=== PATIENT | male | born 1945 | race Caucasian/White ===

== ENCOUNTER 2023-07-11 12:04 | Inpatient (IN) | payer MEDICARE, OTHER ==
[~2023-07-11] VITALS: Ht 177.8 cm; Wt 66.4 kg
[2023-07-11 12:27] LABS: BASOPHILS ABSOLUTE AUTO 0.03 K/mm3 (0.00-0.23); BASOPHILS PERCENT AUTO 0 % (0-2); EOSINOPHILS ABSOLUTE AUTO 0.05 K/mm3 (0.00-0.68); EOSINOPHILS PERCENT AUTO 1 % (0-6); Hematocrit 40.4 % (37.0-53.0); Hemoglobin 13.9 g/dL (13.5-17.5); IMMATURE GRAN ABSOLUTE AUTO 0.04 K/mm3 (0.00-0.10); IMMATURE GRAN PERCENT AUTO 1 % (0-1); LYMPHOCYTES PERCENT AUTO 20 % (21-46); MONOCYTES ABSOLUTE AUTO 0.48 K/mm3 (0.16-1.47); MONOCYTES PERCENT AUTO 6 % (4-13); Mean Corpuscular HGB 32.7 pg (26.0-34.0); Mean Corpuscular HGB Conc 34.4 g/dL (31.5-36.5); Mean Corpuscular Volume 95 fL (80-100); Mean Platelet Volume 9.6 fL (9.1-12.4); NEUTROPHILS ABSOLUTE AUTO 6.37 K/mm3 (1.96-9.15); NEUTROPHILS PERCENT AUTO 74 % (41-73); Platelet Count 224 K/mm3 (150-400); RDW Coefficient Variation 12.6 % (11.7-14.2); RDW Standard Deviation 43.5 fL (35.1-46.3); Red Blood Cell Count 4.25 M/mm3 (4.30-5.90); White Blood Cell Count 8.67 K/mm3 (4.00-11.30)
[2023-07-11 12:49] LABS: Albumin, Blood 3.7 g/dL (3.4-5.0); Bilirubin, Total 0.8 mg/dL (0.1-1.0); Bun/Creatinine Ratio 26.6 (12.0-20.0); Calcium, Blood 9.3 mg/dL (8.5-10.1); Creatinine, Blood 0.79 mg/dL (0.60-1.20); Globulin, Blood 3.6 g/dL (2.2-4.0); Potassium, Blood 4.6 mmol/L (3.5-5.5); Total Protein, Blood 7.3 g/dL (6.4-8.2)
[2023-07-11] MEDS ORDERED: [UNRECOGNIZED DRUG - OTHER] PO (12:51)
[2023-07-11 14:04] LABS: International Normalized Ratio 1.19; Prothrombin Time Results 12.4 Sec (9.7-11.5)
[2023-07-11] MEDS ORDERED: Aspir 8181 MG PO (15:09)
[2023-07-11] MEDS ORDERED: ATOR40TA PO (15:09)
[2023-07-11] MEDS ORDERED: DILT180 PO (15:10)
[2023-07-11] MEDS ORDERED: HYDRA25 PO (15:10)
[2023-07-11] MEDS ORDERED: LINZESS145 MCG PO (15:12)
[2023-07-11] MEDS ORDERED: MESA250ER PO (15:13)
[2023-07-11] MEDS ORDERED: NITR.4SL SL (15:13)
[2023-07-11] MEDS ORDERED: POTA10T PO (15:14)
[2023-07-11] MEDS ORDERED: OMEP20ER PO (15:14)
[2023-07-11] MEDS ORDERED: Sanctura20 MG PO (15:15)
[2023-07-11] MEDS ORDERED: SPIR25 PO (15:15)
[2023-07-11 17:22] VITALS: BP 130/79
[2023-07-11 17:27] LABS: Thyroid Stimulating Hormone 1.53 uIU/mL (0.360-4.800)
--- NOTE | 2023-07-11 18:41 | NUR ---
PT ARRIVED TO THE MEDICAL FLOOR FROM THE ER VIA GURNEY. THE PT WAS ABLE TO TRANNSFER FROM THE GURNEY TO THE BED WITH MINIMAL ASSIST. THE PT IS PLEASANT AND COOPERATIVE. PT DENIES ANY PAIN. THE PT IS SLIGHTLY WEAKER ON THE LEFT ARM AND LEG COMPARED TO THE RIGHT SIDE. PT WAS ORIENTED TO THE ROOM LAYOUT AND CALL SYSTEM. CALL LIGHT IN REACH.
[2023-07-11 19:14] VITALS: BP 142/106
[2023-07-12 02:43] VITALS: BP 105/62
--- NOTE | 2023-07-12 05:31 | NUR ---
SHIFT SUMMARY PT A&OX4 AND PLEASANT. SOMEWHAT EMOTIONAL AT START OF SHIFT D/T FRUSTRATION AT HAVING MULTIPLE STROKES. SOME MILD LEFT SIDED DEFECITS NOTED. PT HAS OCCASIONAL TROUBLE FINDING WORDS. DENIED PAIN BUT DID HAVE SOME NAUSEA ONCE. MEDICATED PER EMAR WITH GOOD EFFECT. NO ACUTE EVENTS OVERNIGHT. PT ABLE TO SLEEP ON AND OFF T/O NIGHT. BED ALARM ON. BED IN LOWEST POSITION AND CALL LIGHT IN REACH.
[2023-07-12 06:38] LABS: BASOPHILS ABSOLUTE AUTO 0.06 K/mm3 (0.00-0.23); BASOPHILS PERCENT AUTO 1 % (0-2); EOSINOPHILS ABSOLUTE AUTO 0.32 K/mm3 (0.00-0.68); EOSINOPHILS PERCENT AUTO 4 % (0-6); Hematocrit 38.8 % (37.0-53.0); Hemoglobin 13.6 g/dL (13.5-17.5); IMMATURE GRAN ABSOLUTE AUTO 0.04 K/mm3 (0.00-0.10); IMMATURE GRAN PERCENT AUTO 0 % (0-1); LYMPHOCYTES ABSOLUTE AUTO 1.59 K/mm3 (0.84-5.20); LYMPHOCYTES PERCENT AUTO 18 % (21-46); MONOCYTES ABSOLUTE AUTO 0.67 K/mm3 (0.16-1.47); MONOCYTES PERCENT AUTO 7 % (4-13); Mean Corpuscular HGB 33.1 pg (26.0-34.0); Mean Corpuscular HGB Conc 35.1 g/dL (31.5-36.5); Mean Corpuscular Volume 94 fL (80-100); Mean Platelet Volume 9.7 fL (9.1-12.4); NEUTROPHILS ABSOLUTE AUTO 6.43 K/mm3 (1.96-9.15); NEUTROPHILS PERCENT AUTO 71 % (41-73); Platelet Count 236 K/mm3 (150-400); RDW Coefficient Variation 12.3 % (11.7-14.2); RDW Standard Deviation 42.8 fL (35.1-46.3); Red Blood Cell Count 4.11 M/mm3 (4.30-5.90); White Blood Cell Count 9.11 K/mm3 (4.00-11.30)
[2023-07-12 07:06] LABS: Albumin, Blood 3.4 g/dL (3.4-5.0); Albumin/Globulin Ratio 1.1 (0.8-1.8); Bilirubin, Total 0.8 mg/dL (0.1-1.0); Bun/Creatinine Ratio 27.6 (12.0-20.0); Calcium, Blood 9.4 mg/dL (8.5-10.1); Creatinine, Blood 0.69 mg/dL (0.60-1.20); Potassium, Blood 3.6 mmol/L (3.5-5.5); Total Protein, Blood 6.4 g/dL (6.4-8.2)
[2023-07-12 07:22] VITALS: BP 111/79
--- NOTE | 2023-07-12 09:00 | NUR ---
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
--- NOTE | 2023-07-12 13:18 | NUR ---
pt having some coughing with swallowing, will wait for speech to eval him for lunch, he did ok with applesauce, but coughed with water. call light in reach.
--- NOTE | 2023-07-12 14:42 | NUR ---
Spiritual care visit conducted. Patient is lying in bed nd alert. He immediately tells me about the strokes and TIAs that he has experienced. He then talks about his 22 yr in the [facility] and his deep determination to perservere and gain his speech and strength back. He shares about his spouse and the how stressed she is about him, her alcoholic son and the grief she is working through because of the of her oldest son. Patient explains about his Yazdanism morgan and that he watches Rev. Bhanu Bynum every week. I normalize his experience, reinforce helpful attitudes and practices and provide anxiety containment, therapetic listening and prayer. Patient responded well and showed signs of reduced stress. I will continue to remain available to patient and family.
[2023-07-12 17:49] VITALS: BP 114/81
--- NOTE | 2023-07-12 18:41 | NUR ---
pt had a swallow eval he is on a puree diet now, doing better with that. no acute changes this shift, call light in reach.
[2023-07-13 00:20] VITALS: BP 128/80
[2023-07-13 03:27] VITALS: BP 115/81
--- NOTE | 2023-07-13 05:36 | NUR ---
END OF SHIFT SUMMARY PT SLEPT WELL OVERNIGHT, NO EVENTS TO REPORT. PT PLEASANT AND COOPERATIVE WITH CARE PROVIDED. PT DENIED CHEST PAIN, NO SOB. PT ON RA, VSS. PT ON TELEMETRY SINUS RHYTHM WITH 84 BPM. ASPIRATION PRECAUTIONS IN PLACE, PT ABLE TO TAKE 2100 MEDICATIONS CRUSHED IN APPLESAUCE WITHOUT ANY DIFFICULTIES. EXPRESSIVE APHASIA, PT HAD SOME TROUBLE WITH FINDING THE RIGHT WORDS. PT ABLE TO STAND UP WITH ASSISTANCE FROM 1P WITH FWW, LEFT ARM WEAKNESS. CALL LIGHT WITHIN REACH, WCTM.
[2023-07-13 07:55] VITALS: BP 103/84
[2023-07-13 09:10] LABS: Bun/Creatinine Ratio 19.2 (12.0-20.0); Calcium, Blood 9.3 mg/dL (8.5-10.1); Creatinine, Blood 0.99 mg/dL (0.60-1.20); Magnesium, Blood 1.9 mg/dL (1.6-2.4)
--- NOTE | 2023-07-13 12:02 | NUR ---
CALL TO DR VELASCO THIS AM DUE TO PATIENT WITH INCREASED LEFT SIDE WEAKNESS SLOUCHING ON COMMODE AND DROOLING, ALSO CALL FROM TELEMETRY SINUS TACH 170S WHILE ON COMMODE, N/V DIAPHORETIC. DR ORDERED METOPROLOL IV, HOWEVER ONCE PATIENT BACK TO BED HEART RATE DECREASED TO 100, WAS IN AFIB FOR SHORT TIME. DR CANCELLED METOPROLOL AND ORDERED TO GIVE MORNING MEDS INCLUDING HEART MEDS AT THAT TIME. MEDS GIVEN PER EMAR.
--- NOTE | 2023-07-13 12:05 | NUR ---
CALL TO [facility] FOR MODEL # OF STENTS AND LOOP RECORDER, SPOKE WITH JD IN MEDICAL RECORDS, , SHE WILL CALL BACK WITH INFORMATION.
[2023-07-13 16:27] VITALS: BP 126/86
--- NOTE | 2023-07-13 17:48 | NUR ---
SHIFT SUMMARY PATIENT WITH NO FURTHER ACUTE EVENTS SINCE SHIFT CHANGE EVENT PREVIOUSLY CHARTED ON. MESALAMINE MEDICATION CANNOT BE CRUSHED AND WAS HELD THIS AM, DR VELASCO NOTIFIED AND ORDERS TO HOLD FOR NOW THE MESALAMINE. PATIENT CONTINUES WITH LEFT SIDE DEFICITS AND SOFT SPOKEN, SLOW TO FIND WORDS. BED IN LOW POSITION WITH ALARM ON. CALL LIGHT IN REACH. HOURLY ROUNDING ON PATIENT TO ASSESS NEEDS HE DOES NOT USE HIS CALL LIGHT.
[2023-07-13 19:34] VITALS: BP 103/74
--- NOTE | 2023-07-14 01:47 | NUR ---
SHIFT JUAN JOSE, PT RESTING IN BED, PT HAD FAMILY HERE EARLYER TO VISIT. PT HAS WEAKNESS TO LEFT ARM, PT NOT ABLE TO GRASP OR DO PUSH PULLS . PT CAN DELIA LIFT ARM VERY SLIGHTLY. PT CAN LIFT LEFT LEG A LITTLE AND SO SOME PUSH PULL WITH FEET. PT ALERT AND ABLE TO TALK PT HAS SOME HESITATION WHEN ANSWERING QUESTIONS. PT HAS TWITHCHING TO LEFT EYE. PT RESTING IN BED. RESPERATIONS WVEN AND UNLABORED. CALL LIGHT IN REACH.
[2023-07-14 05:05] VITALS: BP 120/93
[2023-07-14 05:45] LABS: BASOPHILS ABSOLUTE AUTO 0.04 K/mm3 (0.00-0.23); BASOPHILS PERCENT AUTO 0 % (0-2); EOSINOPHILS ABSOLUTE AUTO 0.15 K/mm3 (0.00-0.68); EOSINOPHILS PERCENT AUTO 2 % (0-6); Hematocrit 42.1 % (37.0-53.0); Hemoglobin 14.5 g/dL (13.5-17.5); IMMATURE GRAN ABSOLUTE AUTO 0.04 K/mm3 (0.00-0.10); IMMATURE GRAN PERCENT AUTO 0 % (0-1); LYMPHOCYTES ABSOLUTE AUTO 1.83 K/mm3 (0.84-5.20); LYMPHOCYTES PERCENT AUTO 18 % (21-46); MONOCYTES ABSOLUTE AUTO 0.83 K/mm3 (0.16-1.47); MONOCYTES PERCENT AUTO 8 % (4-13); Mean Corpuscular HGB 32.7 pg (26.0-34.0); Mean Corpuscular HGB Conc 34.4 g/dL (31.5-36.5); Mean Corpuscular Volume 95 fL (80-100); Mean Platelet Volume 9.8 fL (9.1-12.4); NEUTROPHILS ABSOLUTE AUTO 7.25 K/mm3 (1.96-9.15); NEUTROPHILS PERCENT AUTO 72 % (41-73); Platelet Count 248 K/mm3 (150-400); RDW Coefficient Variation 12.5 % (11.7-14.2); RDW Standard Deviation 43.7 fL (35.1-46.3); Red Blood Cell Count 4.43 M/mm3 (4.30-5.90); White Blood Cell Count 10.14 K/mm3 (4.00-11.30)
[2023-07-14 06:29] LABS: Bun/Creatinine Ratio 24.3 (12.0-20.0); Calcium, Blood 9.6 mg/dL (8.5-10.1); Creatinine, Blood 1.03 mg/dL (0.60-1.20); Potassium, Blood 3.7 mmol/L (3.5-5.5)
[2023-07-14 07:17] VITALS: BP 138/88
--- NOTE | 2023-07-14 13:07 | NUR ---
Ast to BSC. HR increased to 130s per teletray operator, now in afib. Dr. Kennedy informed. No further orders at this time. informed JAZIEL bed available today.
[2023-07-14 14:13] LABS: SARS-Cov-2 (COVID-19) PCR, MMC NEGATIVE (NEGATIVE)
[2023-07-14] MEDS ORDERED: Acetaminophen325 M1 PO (15:32)
[2023-07-14] MEDS ORDERED: POTA20LUD PO (15:33)
[2023-07-14] MEDS ORDERED: XARELTO20 MG PO (15:33)
--- NOTE | 2023-07-14 15:53 | NUR ---
SHIFT/DISCHARGE SUMMARY Pt remains alert to self and place this shift. Forgetful at times, needing to catch the bus. Reminded pt he was going by stretcher to [facility] this afternoon. Denies pain, VSS. Decreased appetite on liquified diet with thin liquids. Oral care provided. at bedside with updates for discharge @1300. Transferred via EMS stretcher. Report called to Esther at [facility].
== END 2023-07-14 15:21 | DRG 65 ==
LOC: EDBD 12:04 → ER 12:04 → MEDS 12:05
PROVIDERS: Emergency Medicine; ADMIT Internal Medicine
DX: I63.9 Cerebral infarction, unspecified (principal); G81.94 Hemiplegia, unspecified affecting left nondominant side; Z66 Do not resuscitate; R13.10 Dysphagia, unspecified; R47.1 Dysarthria and anarthria; I48.91 Unspecified atrial fibrillation; I10 Essential (primary) hypertension; E78.5 Hyperlipidemia, unspecified; N40.0 Benign prostatic hyperplasia without lower urinary tract symptoms; K21.9 Gastro-esophageal reflux disease without esophagitis; I49.5 Sick sinus syndrome; Z79.01 Long term (current) use of anticoagulants
CPT/HCPCS: 36415; 70450; 70496; 70498; 80048; 80053; 82947; 83036; 83735; 84443; 85025; 85610; 85730; 92526; 92610; 93005; 93010; 93306; 94760; 96374; 97110; 97112; 97162; 97166; 99285-25; A9270; G0378; J2405; Q9967; U0002

== ENCOUNTER 2024-07-17 17:03 | Inpatient (IN) | payer MEDICARE, OTHER ==
[~2024-07-17] VITALS: Ht 180.3 cm; Wt 66.8 kg
[~2024-07-17 17:03] MED LIST: ATOR40TA PO; Acetaminophen325 M1 PO; Aspir 8181 MG PO; B-1100 M1 PO; CIPR500 PO; DABI150C PO; DILTIAZEM 24HR360 M2 PO; EXELON1 EA10 TOP; GLYCERIN L5.4 GM/5.1 PR; HYDCHL25 PO; HYDRA25 PO; IMODIUM A-D2 M1 PO; LACT10SY PO; LINZESS145 MCG PO; MESALAMINE PO; METR500 PO; MIRALAX17 GM PO; NITR.4SL SL; OMEP20ER PO; ONDA4 PO; ORTIKOS9 M1 PO; POTA10T PO; POTA20LUD PO; POTCHL20ER PO; SENNA LAXATIVE8.6 MG PO; SERT50 PO; SERTRALINE PO; SPIR25 PO; Sanctura20 MG PO; VISBIOME 112.51 EACH PO; XARELTO20 MG PO; [UNRECOGNIZED DRUG - OTHER] PO
[2024-07-17] MEDS ORDERED: NS 1,000 ML IV SCH (17:35)
[2024-07-17] MEDS ORDERED: Acetaminophen 500 MG Tab PO ONE (17:35)
[2024-07-17 18:01] LABS: BASOPHILS ABSOLUTE AUTO 0.07 K/mm3 (0.00-0.23); BASOPHILS PERCENT AUTO 0 % (0-2); EOSINOPHILS ABSOLUTE AUTO 0.04 K/mm3 (0.00-0.68); EOSINOPHILS PERCENT AUTO 0 % (0-6); Hematocrit 35.2 % (37.0-53.0); Hemoglobin 11.4 g/dL (13.5-17.5); IMMATURE GRAN ABSOLUTE AUTO 0.39 K/mm3 (0.00-0.10); IMMATURE GRAN PERCENT AUTO 2 % (0-1); LYMPHOCYTES ABSOLUTE AUTO 0.19 K/mm3 (0.84-5.20); LYMPHOCYTES PERCENT AUTO 1 % (21-46); MONOCYTES ABSOLUTE AUTO 0.46 K/mm3 (0.16-1.47); MONOCYTES PERCENT AUTO 2 % (4-13); Mean Corpuscular HGB 29.1 pg (26.0-34.0); Mean Corpuscular HGB Conc 32.4 g/dL (31.5-36.5); Mean Corpuscular Volume 90 fL (80-100); Mean Platelet Volume 10.2 fL (9.1-12.4); NEUTROPHILS ABSOLUTE AUTO 19.15 K/mm3 (1.96-9.15); NEUTROPHILS PERCENT AUTO 94 % (41-73); Platelet Count 190 K/mm3 (150-400); RDW Coefficient Variation 17.2 % (11.7-14.2); RDW Standard Deviation 56.8 fL (35.1-46.3); Red Blood Cell Count 3.92 M/mm3 (4.30-5.90)
[2024-07-17 18:37] LABS: Influenza A, PCR NEGATIVE (NEGATIVE); Influenza B, PCR NEGATIVE (NEGATIVE); Resp Syncytial Virus, PCR NEGATIVE (NEGATIVE); SARS-Cov-2 (COVID-19) PCR, MMC NEGATIVE (NEGATIVE)
[2024-07-17 19:05] LABS: Source, Urine Clean Catch
[2024-07-17 19:09] LABS: Appearance, Urine Cloudy (Clear); Bilirubin, Urine Neg (Neg); Blood, Urine 5+ (Neg); Color, Urine Amber (P-Yellow); Glucose Qualitative, Urine Neg (Neg); Ketones, Urine 1+ (Neg); Leukocyte Esterase, Urine 3+ (Neg); Nitrite, Urine Neg (Neg); Protein, Urine 3+ (Neg); Specific Gravity, Urine 1.005 (1.003-1.022); Urobilinogen, Urine 1+ (Normal)
[2024-07-17 19:17] LABS: Bacteria Many /hpf; Red Blood Cells, Urine TNTC /hpf (0-2); Squamous Epithelial Cells Not Seen /hpf (Few); White Blood Cells, Urine TNTC /hpf (0-5)
[2024-07-17] MEDS ORDERED: CefTRIAXone Sodium 1,000 MG in NS 100 ML IV ONE ×2 (19:20→21:15)
[2024-07-17 19:25] LABS: Magnesium, Blood 1.9 mg/dL (1.6-2.4)
[2024-07-17 19:36] LABS: Albumin, Blood 2.1 g/dL (3.4-5.0); Albumin/Globulin Ratio 0.4 (0.8-1.8); Bilirubin, Total 0.8 mg/dL (0.1-1.0); Bun/Creatinine Ratio 23.5 (12.0-20.0); Calcium, Blood 9.3 mg/dL (8.5-10.1); Globulin, Blood 4.8 g/dL (2.2-4.0); Phosphorus, Blood 2.3 mg/dL (2.5-4.9); Total Protein, Blood 6.9 g/dL (6.4-8.2)
[2024-07-17] MEDS ORDERED: CefTRIAXone 1000 MG Vial ONE (20:12)
[2024-07-17] MEDS ORDERED: Ondansetron HCl 2 MG / ML 2ML Vial IV PRN (21:05)
[2024-07-17] MEDS ORDERED: Metoprolol Tartrate 1 MG/ML 5 ML VIAL IV PRN (21:05)
[2024-07-17] MEDS ORDERED: Lactated Ringer's 1,000 ML IV SCH (21:05)
[2024-07-17 21:37] LABS: Bicarbonate Venous 21.2 mmol/L (24.0-30.0); pH Blood Venous 7.47 (7.34-7.37)
[2024-07-17] MEDS ORDERED: NS 1,000 ML IV ONE (22:00)
[2024-07-18] VITALS (67 sets, daily range): BP systolic 72–204; BP diastolic 49–130
[2024-07-18] MEDS ORDERED: Lactated Ringer's 1,000 ML IV ONE (00:07)
[2024-07-18] MEDS ORDERED: Apixaban 5 MG Tab PO SCH (04:33)
[2024-07-18 04:44] LABS: Hemoglobin 9.1 g/dL (13.5-17.5); Mean Corpuscular HGB Conc 32.5 g/dL (31.5-36.5); Mean Corpuscular Volume 89 fL (80-100); Mean Platelet Volume 10.3 fL (9.1-12.4); Platelet Count 117 K/mm3 (150-400); RDW Coefficient Variation 17.5 % (11.7-14.2); Red Blood Cell Count 3.14 M/mm3 (4.30-5.90); White Blood Cell Count 22.01 K/mm3 (4.00-11.30)
[2024-07-18 04:59] LABS: International Normalized Ratio 1.46; Prothrombin Time Results 15.2 Sec (9.7-11.5)
[2024-07-18] MEDS ORDERED: Lactated Ringer's 500 ML IV SCH (05:00)
[2024-07-18] MEDS ORDERED: Lactated Ringer's 500 ML IV ONE (05:05)
[2024-07-18 05:07] LABS: Albumin, Blood 1.6 g/dL (3.4-5.0); Albumin/Globulin Ratio 0.5 (0.8-1.8); Bilirubin, Total 0.7 mg/dL (0.1-1.0); Bun/Creatinine Ratio 19.3 (12.0-20.0); Calcium, Blood 8.4 mg/dL (8.5-10.1); Creatinine, Blood 2.43 mg/dL (0.60-1.20); Globulin, Blood 3.5 g/dL (2.2-4.0); Magnesium, Blood 1.7 mg/dL (1.6-2.4); Potassium, Blood 3.3 mmol/L (3.5-5.5); Total Protein, Blood 5.1 g/dL (6.4-8.2)
[2024-07-18 05:18] LABS: BAND PERCENT MAN 9 % (0-8); BASOPHILS PERCENT MAN 0 % (0-2); EOSINOPHILS PERCENT MAN 0 % (0-6); LYMPHOCYTES ABSOLUTE MAN 0.22 K/mm3 (0.84-5.20); LYMPHOCYTES PERCENT MAN 1 % (21-46); METAMYELOCYTE ABSOLUTE MAN 0.22 K/mm3 (0.00-0.00); METAMYELOCYTE PERCENT MAN 1 % (0-0); MONOCYTES ABSOLUTE MAN 0.22 K/mm3 (0.16-1.47); MONOCYTES PERCENT MAN 1 % (4-13); MYELOCYTE ABSOLUTE MAN 0.22 K/mm3 (0.00-0.00); MYELOCYTE PERCENT MAN 1 % (0-0); NEUTROPHILS ABSOLUTE MAN 21.12 K/mm3 (1.96-9.15); SEG NEUTROPHILS PERCENT MAN 87 % (41-73); TOTAL CELLS COUNTED 100
[2024-07-18] MEDS ORDERED: Potassium Chloride 40 MEQ IV SCH (05:25)
[2024-07-18] MEDS ORDERED: D5W-1/2NS 1,000 ML IV SCH (05:30)
[2024-07-18] MEDS ORDERED: Pantoprazole Sodium 40 MG Injection IV SCH (06:00)
--- NOTE | 2024-07-18 06:04 | NUR ---
TRANSFER NOTE/PATIENT UPDATE PT TRANSFERRED TO PCU 1 AT 0355. PT ALERT AND NONVERBAL. PT NOT FOLLOWING DIRECTIONS. PURPOSEFUL MOVEMENT NOTED IN LEFT ARM. OTHERWISE NO OTHER MOVEMENT NOTED IN EXTREMETIES. PERRLA. SPONTANEOUS EYE MOVEMENT, TRACKING THIS RN. PT UNABLE TO FOLLOW DIRECTIONS FOR PO INTAKE. PT WITH SBP 70'S AT TIME OF TRANSFER WITH AFIB IN THE 130-140'S. MD HANKINS WITH ORDERS TO DC LOPRESSOR PUSH AND START AMIODARONE GTT AND GIVE 500ML BOLUS OF LR. BOLUS GIVEN WITH NOTED IMPROVMENT OF HR, WHICH DECREASED TO 110-120; SBP CONTINUED TO BE 70'S, WITH MAP 59-62. NOTIFIED OF CHANGE AND VERBALIZED TO HOLD STARTING AMIODARONE FOR NOW ANGIVE ANOTHER 500MLS BOLUS OF LR. GIVEN PER EMAR. AT TIME OF INFUSING BOLUS MORNING LAB RESULTS CAME BACK SHOWING A NA VALUE OF 152 AND K+ OF 3.3. CALL PLACED TO MD HANKINS REGARDING ELECTROLYTES. ORDER FOR D5 1/2 NS AND 40MEQ OF KCL. 2ND BOLUS COMPLETED WITH SLIGHT BP IMPROVEMENT WITH SBP 80'S AND MAP OF 65. HR INCREASED BACK TO 140-150'S. CALL PLACED TO PATIENT'S PHYLLIS TO DISCUSS PATIENT'S CHANGES IN VITALS, HOWEVER, DID NOT ANSWER SO MESSAGE WAS LEFT. CALL PLACED TO MD HANKINS REGARDING CURRENT VITALS AND BEING UNABLE TO REACH . MD HANKINS WITH ORDERS FOR PATIENT TO BE TRANSFERRED TO ICU AT THIS TIME. PT TRANSFERRED TO ICU 3. BEDSIDE SHIFT REPORT GIVEN IN ICU. PT WITH DNR WRISTBAND ON LEFT WRIST AT TIME OF TRANSFER.
[2024-07-18] MEDS ORDERED: Potassium Chloride 40 MEQ in NS 250 ML IV ONE (06:15)
--- NOTE | 2024-07-18 06:16 | NUR ---
SHIFT SUMMARY: PT ARRIVED APPROXIMATELY 0550 FROM PCU. RECEIVED REPORT FROM RN. PT IS NONVERBAL WITH PARKINSON'S, DEMENTIA AND HX OF CVA. PATIENT IS TRACKING MOVEMENT BUT NOT EXHIBITING PURPOSEFUL MOVEMENT OR FOLLOWING COMMANDS. SINUS TACH ON MONITOR. MAP 60-65. LUNGS CLEAR. SKIN IS DRY, WOUND ON COCCYX NOTED, MEPILEX IN PLACE AND PHOTO IN CHART. 1 [address]G PERIPHERAL IV IN PLACE, STARTED INFUSING FLUIDS.
[2024-07-18] MEDS ORDERED: NS 250 ML IV PRN (06:25)
--- NOTE | 2024-07-18 06:38 | NUR ---
WOUND DR HANKINS NOTIFIED REGARDING COCCYX WOUND AND TX.
[2024-07-18] MEDS ORDERED: Diltiazem HCl 180 MG Cap.CD PO SCH (09:00)
[2024-07-18] MEDS ORDERED: Atorvastatin 40 MG Tab PO SCH (09:00)
[2024-07-18] MEDS ORDERED: Sertraline HCl 50 MG Tab PO SCH (09:00)
[2024-07-18] MEDS ORDERED: RIVASTIGMINE 4.6 MG/24 HR TOP SCH (09:00)
[2024-07-18] MEDS ORDERED: CefTRIAXone Sodium 2,000 MG in NS 100 ML IV SCH (09:00)
[2024-07-18] MEDS ORDERED: AMAN100 PO (10:43)
[2024-07-18] MEDS ORDERED: Hair, Skin & N1 EACH PO (10:46)
[2024-07-18 15:52] LABS: Albumin, Blood 1.6 g/dL (3.4-5.0); Anion Gap 15 mmol/L (3-11); Blood Urea Nitrogen 48 mg/dL (8-24); Bun/Creatinine Ratio 21.6 (12.0-20.0); CO2, Blood 14 mmol/L (21-32); Calcium, Blood 7.9 mg/dL (8.5-10.1); Chloride, Blood 122 mmol/L (98-108); Creatinine, Blood 2.22 mg/dL (0.60-1.20); Glomerular Filtration Rate 29 (60-); Glucose, Blood 257 mg/dL (70-99); Sodium, Blood 146 mmol/L (136-145)
[2024-07-18] MEDS ORDERED: NS 1,000 ML IV SCH (16:00)
[2024-07-18] MEDS ORDERED: Albumin (Human) 25gm/100ml 100 ML IV SCH (16:05)
[2024-07-18] MEDS ORDERED: Dose Adjust by Pharmacy XX STA (17:12)
[2024-07-18] MEDS ORDERED: Heparin Sodium,Porcine/0.5 NS 500 ML IV SCH (17:15)
[2024-07-18] MEDS ORDERED: Heparin Sodium 5000 Units/ML 1ML MDV IV ONE (17:15)
--- NOTE | 2024-07-18 18:59 | NUR ---
SUMMARY PT REMAINS MOSTLY NON VERBAL, HE SAID "YEAH" AND "OW" ONE TIME OTHERWISE NO OTHER WORDS. WITHDRAWLS FROM NOXIOUS STIMULUS TO EXTREMITIES BUT DOES NOT FOLLOW COMMANDS JUST STARES BLANKLY. CLAMPS MOUTH CLOSED FOR ORAL CARE, APPLIED MOISTURIZER TO LIPS. PT VOIDED 2X TODAY, UNMEASURED VOIDS. BLADDER SCAN THIS EVENING SHOWED 136ML. TRYING TO AVOID INVASIVE PROCEDURES SUCH SOLOMON CATH DUE TO PT'S POLST THAT IS ON THE CHART. PHYLLIS UPDATED TODAY AND IS OK WITH THE INTERVENTIONS THUS FAR. PT TAKEN TO CT SCAN FOR HEAD CT. PT HAS BEEN NON VERBAL JUST IN THE LAST FEW WEEKS AFTER GETTING COVID PER THE . PT CONVERTED TO NS THIS AM SHORTLY AFTER STARTING AMIODORONE GTT. DR. RAMOS D/C'D GTT THIS EVENING. ON LOW DOSE PERIPHERAL LEVOPHED. ALBUMIN STARTED.
[2024-07-18] MEDS ORDERED: HydrALAZINE HCl 20 MG / ML 1ML Vial IV ONE (21:25)
[2024-07-18] MEDS ORDERED: FentaNYL Citrate 50 MCG/ML 2 ML Injection IV ONE (22:30)
[2024-07-18] MEDS ORDERED: Dextrose 50% 50 ML Vial IV ONE (23:50)
[2024-07-19] VITALS (55 sets, daily range): BP systolic 103–185; BP diastolic 64–134
[2024-07-19] MEDS ORDERED: D5W-1/2NS 1,000 ML IV ONE (00:30)
--- NOTE | 2024-07-19 00:57 | NUR ---
THIS RN ASSUMED CARE OF PT AT 1900. PT IS NON-VERBAL AT BASELINE, PT IS RESPONDING TO PAINFUL STIMULI. PT SOUNDS CLEAR/DIMINISHED, ON 2L NC SATTING >95%, NO OBJECTIVE S/S OF SHORTNESS OF BREATH. HEART RATE WAS IN LOW 100s, BLOOD PRESSURE STABLE 120/80s, LEVO WAS TITRATED OFF. PT WAS NOT PUTTING OUT URINE, DR. SCHRADER SAID TO PUT IN A SOLOMON CATHETER. NO OTHER INTERVENTIONS AT THIS TIME. PLAN OF CARE CONTINUED.
--- NOTE | 2024-07-19 01:03 | NUR ---
PT HEART RATE STARTED TO INCREASE TO 120-130s, BLOOD PRESSURE HYPERTENSIVE AT 180/100s, DR. HANKINS WAS NOTIFIED TO COME SEE PT BEDSIDE. PROVIDER AT BEDSIDE ORDERED 12.5MCG OF FENT. EKG WAS DONE PT IN A-FIB RVR AND PROVIDER ORDERED 150MG BOLUS OF AMIO. PT ALSO NOTED TO HAVE A BLOOD SUGAR OF 36, PROVIDER NOTIFIED AND ORDERED AMP OF D50, AND TO START D5 1/2NS AT 100ML/HR X1 BAG. NO OTHER INTERVENTIONS AT THIS TIME. PLAN OF CARE CONTINUED.
[2024-07-19] MEDS ORDERED: Dose Adjust by Pharmacy XX STA (01:38)
[2024-07-19 03:45] LABS: Hematocrit 25.8 % (37.0-53.0); Hemoglobin 8.4 g/dL (13.5-17.5); Mean Corpuscular HGB 28.6 pg (26.0-34.0); Mean Corpuscular HGB Conc 32.6 g/dL (31.5-36.5); Mean Corpuscular Volume 88 fL (80-100); Mean Platelet Volume 10.7 fL (9.1-12.4); NRBC ABSOLUTE 0.02 K/mm3 (0.00-0.02); NRBC Auto 0.1 /100 WBC (0.0-0.2); Platelet Count 96 K/mm3 (150-400); RDW Coefficient Variation 17.9 % (11.7-14.2); RDW Standard Deviation 56.9 fL (35.1-46.3); Red Blood Cell Count 2.94 M/mm3 (4.30-5.90); White Blood Cell Count 32.85 K/mm3 (4.00-11.30)
[2024-07-19 04:14] LABS: Anion Gap 16 mmol/L (3-11); Blood Urea Nitrogen 49 mg/dL (8-24); Bun/Creatinine Ratio 23.8 (12.0-20.0); CO2, Blood 13 mmol/L (21-32); Calcium, Blood 8.1 mg/dL (8.5-10.1); Chloride, Blood 123 mmol/L (98-108); Creatinine, Blood 2.06 mg/dL (0.60-1.20); Glomerular Filtration Rate 32 (60-); Glucose, Blood 97 mg/dL (70-99); Phosphorus, Blood 1.8 mg/dL (2.5-4.9); Potassium, Blood 3.8 mmol/L (3.5-5.5); Sodium, Blood 148 mmol/L (136-145)
[2024-07-19 04:15] LABS: BAND PERCENT MAN 4 % (0-8); BASOPHILS PERCENT MAN 0 % (0-2); EOSINOPHILS PERCENT MAN 0 % (0-6); LYMPHOCYTES ABSOLUTE MAN 0.98 K/mm3 (0.84-5.20); LYMPHOCYTES PERCENT MAN 3 % (21-46); MONOCYTES PERCENT MAN 0 % (4-13); NEUTROPHILS ABSOLUTE MAN 31.86 K/mm3 (1.96-9.15); SEG NEUTROPHILS PERCENT MAN 93 % (41-73); TOTAL CELLS COUNTED 100
--- NOTE | 2024-07-19 05:57 | NUR ---
PT SUMMARY PT IS LAYING IN BED PEACEFULLY. PT BLOOD SUGAR HAS COME UP TO 112, STILL ON THE D5 1/2NS AT 100ML/HR. PT WBC WENT UP TO 32.85, NOTIFIED, PROVIDER SAID TO WAIT FOR BLOOD CULTURE RESULTS TO COME BACK. PT STILL IN AND OUT OF A-FIB RATE CONTROLLED, BLOOD PRESSURE STABLE AT 128/80. NO OTHER ACUTE EVENTS TO REPORT OVERNIGHT. PLAN OF CARE CONTINUED.
[2024-07-19] MEDS ORDERED: Potassium Phosphate Dibasic 30 MM in Dextrose 5% 500 ML IV ONE (12:00)
--- NOTE | 2024-07-19 13:11 | NUR ---
BEDSIDE SWALLOW EVAL WITH THIS RN. PT BECAME VERY ANXIOUS WHEN DISCUSSED TRYING TO SWALLOW FOODS. HR,BP, AND RR ALL INCREASED. VISIBLY UPSET. ASKED HIM TO TRY WATER, IN SIPPING THROUGH A STRAW HE WAS COUGHING, WHEN HE OPEN LID TOOK IN WATER HE WAS ABLE TO TOLERATE. VIGOROUS ORAL CARE ILLICITED A LARGE VOLUME OF THICK WHITE/CREAM EXPECTORATE THAT WAS STUCK ON THE ROOF OF HIS MOUTH AND POSTERIOR PHARYNX. HE ALLOWED CONTINUED CLEANING FOR SEVERAL MINUTES AND THEN WAS ABLE TO VOICE A FEW WORDS AND TAKE IN SOME MORE SIPS OF WATER. FEELS PT IS ABLE TO TRANSITION/DOWNGRADE TO LOWER STATUS, JUST CONTINUE WITH TELEMETRY.
[2024-07-19] MEDS ORDERED: Clarify Drug Order XX ONE (17:40)
--- NOTE | 2024-07-19 18:24 | NUR ---
JOSE ANGEL HAS REMAINED OFF THE PRESSORS THROUGHOUT THE SHIFT. HE HAS REMAINED WITH SBP >130 FOR THE MAJORITY OF THE DAY. HE WAS ABLE TO SWALLOW SOME WATER, HAD A LARGE BM, VOIDED PER SOLOMON, HEPARIN GTT DECREASED TO 10U/KG/HR. RIGHT ARM WITH SOME MOVEMENT, CROSSES ANKLES, SAYS A FEW WORDS. SMILES A LOT. LUNGS SOUND CLEAR, ORAL CARE COMPLETED WITH LARGE VOLUME OF MUCOUS PLUGS REMOVED FROM BACK OF THE THROAT. VOICE WAS STRONGER AND LESS COUGHING ONCE REMOVED. VISITED TODAY. NO FURTHER CHANGES. UPDATE TO TODAY.
[2024-07-19] MEDS ORDERED: Metoprolol Tartrate 1 MG/ML 5 ML VIAL IV PRN (18:25)
[2024-07-19] MEDS ORDERED: Diltiazem HCl 180 MG Cap.CD PO SCH (19:00)
[2024-07-19] MEDS ORDERED: Diltiazem HCl 5 MG / ML 5ML Vial IV ONE (19:30)
--- NOTE | 2024-07-19 20:53 | NUR ---
THIS RN ASSUMED CARE OF PT AT 1900. PT IS RESTING IN BED PEACEFULLY. PT DID NOT SPEAK ANY WORDS UPON ASSESSMENT BUT CLINICALLY LOOKS A LOT BETTER. PT HEART RATE IS IN THE 70-80s, BLOOD PRESSURE STABLE AT 138/94, UNABLE TO ASSESS CHEST PAIN DUE TO NON-VERBAL. PT SOUNDS DIMINISHED, ON 2L NC SATTING >95%, NO OBJECTIVE S/S OF SHORTNESS OF BREATHE. PT HAS A CARDIZEM PO AT 1900, PT NOT ABLE TO PASS NURSE SWALLOW STUDY. NOTIFIED, PT IS NOW NPO WITH A PENDING SPEECH EVAL, PO CARDIZEM WAS HELD. NO OTHER INTERVENTIONS AT THIS TIME. PLAN OF CARE CONTINUED.
--- NOTE | 2024-07-19 21:10 | NUR ---
PT WILL BE TRANSFERING TO [facility].
--- NOTE | 2024-07-19 21:44 | NUR ---
TRANSFER CALL TO PHYLLIS AND INFORMED THAT PT IS MOVING IT PCU 4. ANSWERED QUESTIONS. REPORT GIVEN TO PCU NURSE LINDA BY MADELINE. PT TRANSFERED BY BED
[2024-07-20] VITALS (11 sets, daily range): BP systolic 137–162; BP diastolic 80–110
[2024-07-20] MEDS ORDERED: Dose Adjust by Pharmacy XX STA (00:23)
[2024-07-20] MEDS ORDERED: D5W-1/2NS 1,000 ML IV ONE (01:00)
[2024-07-20 03:41] LABS: BASOPHILS ABSOLUTE AUTO 0.07 K/mm3 (0.00-0.23); BASOPHILS PERCENT AUTO 0 % (0-2); Hematocrit 27.4 % (37.0-53.0); Hemoglobin 8.9 g/dL (13.5-17.5); Mean Corpuscular HGB 28.6 pg (26.0-34.0); Mean Corpuscular HGB Conc 32.5 g/dL (31.5-36.5); Mean Corpuscular Volume 88 fL (80-100); Mean Platelet Volume 11.9 fL (9.1-12.4); NRBC ABSOLUTE 0.02 K/mm3 (0.00-0.02); NRBC Auto 0.1 /100 WBC (0.0-0.2); Platelet Count 79 K/mm3 (150-400); RDW Coefficient Variation 18.4 % (11.7-14.2); RDW Standard Deviation 58.9 fL (35.1-46.3); Red Blood Cell Count 3.11 M/mm3 (4.30-5.90); White Blood Cell Count 23.97 K/mm3 (4.00-11.30)
[2024-07-20 03:42] LABS: EOSINOPHILS ABSOLUTE AUTO 0.02 K/mm3 (0.00-0.68); EOSINOPHILS PERCENT AUTO 0 % (0-6); IMMATURE GRAN ABSOLUTE AUTO 0.19 K/mm3 (0.00-0.10); IMMATURE GRAN PERCENT AUTO 1 % (0-1); LYMPHOCYTES ABSOLUTE AUTO 1.25 K/mm3 (0.84-5.20); LYMPHOCYTES PERCENT AUTO 5 % (21-46); MONOCYTES ABSOLUTE AUTO 0.49 K/mm3 (0.16-1.47); MONOCYTES PERCENT AUTO 2 % (4-13); NEUTROPHILS ABSOLUTE AUTO 21.95 K/mm3 (1.96-9.15); NEUTROPHILS PERCENT AUTO 92 % (41-73)
[2024-07-20 04:14] LABS: Albumin, Blood 1.9 g/dL (3.4-5.0); Anion Gap 13 mmol/L (3-11); Blood Urea Nitrogen 23 mg/dL (8-24); Bun/Creatinine Ratio 11.4 (12.0-20.0); CO2, Blood 17 mmol/L (21-32); Chloride, Blood 124 mmol/L (98-108); Creatinine, Blood 2.02 mg/dL (0.60-1.20); Glomerular Filtration Rate 33 (60-); Glucose, Blood 125 mg/dL (70-99); Phosphorus, Blood 3.2 mg/dL (2.5-4.9); Potassium, Blood 3.8 mmol/L (3.5-5.5); Sodium, Blood 150 mmol/L (136-145)
--- NOTE | 2024-07-20 05:02 | NUR ---
SHIFT SUMMARY ALERT, BUT NON-VERBAL AT BASELINE. NO ACUTE EVENTS OVER NIGHT. PT TRANSFFERED FROM ICU 3 EARLY THIS TIME. CARDIAC, CONVERTED FROM SR TO AFIB DURING THE NIGHT WITH HR RANGING 110-120'S. DID NOT HAVE TO GIVE IV LOPRESSOR PUSH DUE TO HR RETURNING TO THE 70-90'S. SHAKES HEAD NOW TO BEING IN CP, PRESSURE OR DIZZINESS. RESPIRATORY, MAINTAINS SPO2 >90 ON RA. SHAKES HEAD "NO" WHEN ASKED HE IS EXPERIENCING SOB OR DYSPNEA. GI/, INCONTINENT OF STOOL WITH 1 BM AFTER TRANSFER FROM ICU. SOLOMON CATH REMAINS PATENT DRAINING EM COLORED URINE TO GRAVITY. ATTENDS IN PLACE AND CHANGED PRN TO KEEP SKIN C/D/I . BLOOD GLUCOSE NOTED TO BE STEADILY BE DECREASING, PT IS NPO AT THIS TIME PENDING SPEECH EVAL. DR. BLAKELY NOTIFIED WITH ORDERS FOR D5 1/2NS gtt INFUSING PER EMAR. NO NEW ORDERS AT THIS TIME, WILL REPORT TO OCOMING RN. GUTIERREZ PINA OF THIS NOTE
[2024-07-20] MEDS ORDERED: Dextrose 5% 1,000 ML IV SCH (07:45)
--- NOTE | 2024-07-20 18:36 | NUR ---
SHIFT SUMMARY PT REMAINS ALERT, BUT DIFFICULT TO ASK ORIENTATION QUESTIONS. PT ANSWERS WITH SOUNDS AND AN OCCASIONAL WORD THAT IS DIFFICULT TO UNDERSTAND. BP STABLE. 02 SATS HAVE REMAINED ABOVE 90% ON RA. PT SHAKES HIS HEAD NO WHEN ASKED ABOUT PAIN. SOLOMON PATENT AND DRAINING CLEAR YELLOW URINE. D5 INFUSING PER ORDERS. BLOOD SUGARS HAVE BEEN STABLE. PT AWAITING ST EVALUATION. PT REPOSITIONED Q2H. PT'S SPOUSE CALLED AND UPDATED THIS SHIFT. WILL REPORT OFF TO ONCOMING RN
[2024-07-21] VITALS (8 sets, daily range): BP systolic 113–161; BP diastolic 66–95
[2024-07-21 04:09] LABS: BASOPHILS ABSOLUTE AUTO 0.03 K/mm3 (0.00-0.23); BASOPHILS PERCENT AUTO 0 % (0-2); EOSINOPHILS ABSOLUTE AUTO 0.04 K/mm3 (0.00-0.68); EOSINOPHILS PERCENT AUTO 0 % (0-6); Hematocrit 28.8 % (37.0-53.0); Hemoglobin 9.7 g/dL (13.5-17.5); IMMATURE GRAN ABSOLUTE AUTO 0.16 K/mm3 (0.00-0.10); IMMATURE GRAN PERCENT AUTO 1 % (0-1); LYMPHOCYTES ABSOLUTE AUTO 1.29 K/mm3 (0.84-5.20); LYMPHOCYTES PERCENT AUTO 8 % (21-46); MONOCYTES ABSOLUTE AUTO 0.57 K/mm3 (0.16-1.47); MONOCYTES PERCENT AUTO 4 % (4-13); Mean Corpuscular HGB 28.7 pg (26.0-34.0); Mean Corpuscular HGB Conc 33.7 g/dL (31.5-36.5); Mean Corpuscular Volume 85 fL (80-100); Mean Platelet Volume 12.3 fL (9.1-12.4); NEUTROPHILS ABSOLUTE AUTO 14.21 K/mm3 (1.96-9.15); NEUTROPHILS PERCENT AUTO 87 % (41-73); NRBC ABSOLUTE 0.02 K/mm3 (0.00-0.02); NRBC Auto 0.1 /100 WBC (0.0-0.2); Platelet Count 69 K/mm3 (150-400); RDW Coefficient Variation 18.1 % (11.7-14.2); RDW Standard Deviation 56.4 fL (35.1-46.3); Red Blood Cell Count 3.38 M/mm3 (4.30-5.90)
[2024-07-21 04:23] LABS: Albumin, Blood 1.7 g/dL (3.4-5.0); Anion Gap 11 mmol/L (3-11); Blood Urea Nitrogen 32 mg/dL (8-24); Bun/Creatinine Ratio 19.9 (12.0-20.0); CO2, Blood 18 mmol/L (21-32); Chloride, Blood 121 mmol/L (98-108); Creatinine, Blood 1.61 mg/dL (0.60-1.20); Glomerular Filtration Rate 43 (60-); Glucose, Blood 153 mg/dL (70-99); Phosphorus, Blood 1.9 mg/dL (2.5-4.9); Sodium, Blood 147 mmol/L (136-145)
[2024-07-21] MEDS ORDERED: Dose Adjust by Pharmacy XX STA ×4 (04:37→23:59)
--- NOTE | 2024-07-21 05:58 | NUR ---
SHIFT SUMMARY ALERT & NON-VERBAL AT BASELINE. PT ABLE TO USE HEAD TO SHAKE FOR NO OR YES WHEN ASKED QUESTIONS. BP STABLE, PT CONVERTED TO AFIB THROUGHOUT NIGHT AND SUSTAINED HR OF 140. METOPROLOL PUSH GIVEN WITH GOOD EFFECT, PT REMAINS IN AFIB 80s-100s. PT REMAINS ON ROOM AIR >92%. PT HAS NO C/O PAIN AT THIS TIME. SOLOMON PATENT AND DRAINING ADEQUATELY WITH GRAVITY. PT FINISHED UP 2 BAGS OF D5, BG STABLE THROUGHOUT NIGHT. WILL CONTINUE TO MONITOR Q6HR. PT AWAITING ST EVAL TODAY. NO FURTHER QUESTIONS OR CONCERNS AT THIS TIME. HOURLY ROUNDING CONTINUES. WILL REPORT TO ONCOMING NURSE.
[2024-07-21] MEDS ORDERED: Potassium Phosphate Dibasic 30 MM in Dextrose 5% 500 ML IV ONE (06:15)
[2024-07-21] MEDS ORDERED: Flomax0.4 MG PO (08:00)
[2024-07-21] MEDS ORDERED: XARELTO20 MG PO (08:01)
[2024-07-21] MEDS ORDERED: Dextrose 5% 1,000 ML IV SCH (12:00)
[2024-07-21 12:20] LABS: Platelet Count 62 K/mm3 (150-400)
--- NOTE | 2024-07-21 13:23 | NUR ---
UPDATE HR SUSTAINING 150'S. BP STABLE. DR. WADE CALLED AND NOTIFIED. NEW ORDERS FOR ONE TIME DOSE OF IV LOPRESSOR.
[2024-07-21] MEDS ORDERED: Metoprolol Tartrate 1 MG/ML 5 ML VIAL IV ONE (13:25)
[2024-07-21 14:13] LABS: Mean Platelet Volume 12.2 fL (9.1-12.4); Platelet Count 57 K/mm3 (150-400)
--- NOTE | 2024-07-21 15:54 | NUR ---
UPDATE UPDATED DR. WADE ABOUT REPEAT PLATELET VALUE.
[2024-07-21] MEDS ORDERED: [UNRECOGNIZED DRUG - OTHER] XX STA (16:10)
[2024-07-21] MEDS ORDERED: [UNRECOGNIZED DRUG - OTHER] XX PRN (16:40)
--- NOTE | 2024-07-21 18:42 | NUR ---
SHIFT SUMMARY PT REMAINS NONVERBAL THIS SHIFT. PT MORE LETHARGIC THIS SHIFT THAN PREVIOUS. PT DOES OPEN HIS EYES WHEN HIS NAME IS CALLED, BUT THEN QUICKLY CLOSES EYES AGAIN. BP STABLE. HR 80'S THIS EVENING. O2 SATS REMAIN ABOVE 90% ON RA. LARGE CAST REMOVED FROM ROOF OF MOUTH THIS AFTERNOON WITH DENTAL HYGENTIST. PT CLAMPS MOUTH DOWN WHEN ATTEMPTING ORAL CARE, BUT THIS RN ABLE TO PROVIDE IT APPROXIMATELY Q4H. PT REPOSITIONED Q2H. SOLOMON PATENT AND DRAINING. SPOUSE AT BEDSIDE THIS SHIFT AND UPDATED. WILL REPORT OFF TO ONCOMING RN
[2024-07-22] VITALS (8 sets, daily range): BP systolic 96–136; BP diastolic 59–89
[2024-07-22 03:12] LABS: Hematocrit 28.8 % (37.0-53.0); Hemoglobin 9.6 g/dL (13.5-17.5); Mean Corpuscular HGB 28.4 pg (26.0-34.0); Mean Corpuscular HGB Conc 33.3 g/dL (31.5-36.5); Mean Corpuscular Volume 85 fL (80-100); Mean Platelet Volume 11.5 fL (9.1-12.4); NRBC ABSOLUTE 0.03 K/mm3 (0.00-0.02); NRBC Auto 0.2 /100 WBC (0.0-0.2); Platelet Count 53 K/mm3 (150-400); RDW Coefficient Variation 18.4 % (11.7-14.2); Red Blood Cell Count 3.38 M/mm3 (4.30-5.90); White Blood Cell Count 13.11 K/mm3 (4.00-11.30)
[2024-07-22 03:18] LABS: Albumin, Blood 1.7 g/dL (3.4-5.0); Anion Gap 11 mmol/L (3-11); Blood Urea Nitrogen 25 mg/dL (8-24); Bun/Creatinine Ratio 16.9 (12.0-20.0); CO2, Blood 18 mmol/L (21-32); Calcium, Blood 7.9 mg/dL (8.5-10.1); Chloride, Blood 118 mmol/L (98-108); Creatinine, Blood 1.48 mg/dL (0.60-1.20); Glomerular Filtration Rate 47 (60-); Glucose, Blood 134 mg/dL (70-99); Phosphorus, Blood 2.9 mg/dL (2.5-4.9); Sodium, Blood 144 mmol/L (136-145)
--- NOTE | 2024-07-22 05:00 | NUR ---
SHIFT SUMMARY PT REMAINS NON-VERBAL HOWEVER ABLE TO COMMUNICATE WITH YES OR NO QUESTIONS BY SHAKING HEAD. PT FINISHED LITER OF D5 THROUGHOUT NIGHT, BG STABLE. PT HAD AGGRASTAT RUNNING HOWEVER LABS SHOWED INCREASED APTT LEVELS >139. PHARMACIST DISCUSSED WITH PROVIDER AND INFUSION STOPPED. PT CONTINUES TO HAVE SOLOMON PATENT AND DRAINING EM COLORED URINE WITH GRAVITY. PT REFUSING ORAL CARE AND ACTIVELY MOVING HEAD AWAY FROM ME WHEN TRYING TO MOISTEN MOUTH. HOWEVER PT SEEMS VERY ALERT. PT REPOSITIONED THROUGHOUT NIGHT. NO FURTHER QUESTIONS OR CONCERNS AT THIS TIME. WILL REPORT TO ONCOMING NURSE.
--- NOTE | 2024-07-22 07:25 | NUR ---
ASSUMPTION NOTE: THIS RN TO ASSUME CARE OF PATIENT. PATIENT IS SITTING IN BED AND NOT FOLLOWING COMMANDS OR ANSWERING QUESTIONS. DOES SMILE WHEN TRYING TO TO COMMUNICATE. VITAL SIGNS TAKEN AND ARE STABLE. WILL CONTINUE TO ASSESS AND CARE FOR PATIENT THROUGHOUT SHIFT. PATIENT HAS THE CALL LIGHT WITHIN REACH AND BED AT THE LOWEST POSITION.
--- NOTE | 2024-07-22 08:09 | NUR ---
Pt is alert, tracks with his eyes, but does not follow directions well this morning. Non - verbal, only nodded very slightly only once to a question. Extremities are stiff, no spontaneous movement noted of his extremities. OT deferred until patient can participate. Pt resisting oral care. Noted abrasions on lips, hard and soft palate and inner cheeks.
[2024-07-22] MEDS ORDERED: Dose Adjust by Pharmacy XX STA ×2 (08:31→15:12)
[2024-07-22] MEDS ORDERED: CefTRIAXone Sodium 2,000 MG in NS 100 ML IV SCH (09:00)
--- NOTE | 2024-07-22 09:29 | NUR ---
Continue to hold Argatroban, due to critically high PTT , per Rosario Kemp.
--- NOTE | 2024-07-22 09:37 | NUR ---
called for an update and this rn updated her.
[2024-07-22] MEDS ORDERED: Potassium Chloride 40 MEQ in NS 250 ML IV ONE (11:15)
--- NOTE | 2024-07-22 11:36 | NUR ---
md to bedside: md castillo to bedside and assesed patient. patient was able to smile and made some sounds but not coherent responses. was able to squeeze md's hand. placed orders for labs and some imaging. this rn will call to ask some follow up questions.
[2024-07-22 12:40] LABS: Albumin, Blood 1.7 g/dL (3.4-5.0); Albumin/Globulin Ratio 0.5 (0.8-1.8); Bilirubin, Direct 1.5 mg/dL (0.0-0.3); Bilirubin, Indirect 0.5 mg/dL (0.1-0.7); Globulin, Blood 3.7 g/dL (2.2-4.0); Total Protein, Blood 5.4 g/dL (6.4-8.2)
--- NOTE | 2024-07-22 12:58 | NUR ---
Spoke with patient's Lillie by phone. MRI screening form completed with her; MRI is checking with [facility] records to determine if the MRI is possible to do here, they will get back with us. Pt's Lillie said that she was OK with tube feeding if the pt does not pass his swallow evaluation. Call to Dr. Varela to update her and also to notify that the pt's liver panel labs are complete.
--- NOTE | 2024-07-22 13:37 | NUR ---
Pt converted to NSR just after 5 mg IV metoprolol given for sustained heart rate 122 bpm, atrial fib.
--- NOTE | 2024-07-22 13:44 | NUR ---
Spiritual care visit conducted. Upon receiving a referral for spiritual care, I visited the patient. He struggles to communicate but tracks with eye contact. He watches closely as I speak words of encouragement and provided prayer. Patient showed signs of greater peace. .
--- NOTE | 2024-07-22 15:06 | NUR ---
MD CALLED: THIS RN RECEIVED A CRITCAL LAB VALUE FROM HEMATOLOGY AND NOTIFED MD. MD REQUESTED TO CONTINUE TO HOLD MEDICATIONS AND ASKED TO GET A NEW PTT LAB SCHEDULED.
--- NOTE | 2024-07-22 16:06 | NUR ---
PALLIATIVE CARE NOTE: SPOKE TO PHYLLIS OVER PHONE ABOUT OPTIONS FOR DISCHARGE PLANNING PURPOSES. PHYLLIS INDICATED PT WAS DISCHARGED TO [facility] ON 07/17 FROM [facility] ON THE PALL[facility]ATIVE CARE PROGRAM AND [facility] TO HOSPICE CARE ONCE HE NEEDED THOSE SERVICES. 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 PHYLLIS STATED PT WEIGHED 167 LBS LAST YEAR AND AT [facility] HE RECENTLY WEIGHED 121 LBS. PHYLLIS REPORTED PT RECENTLY GOT COVID AT [facility] AND THAT WAS WHEN HE STOPPED EATING AND HAS NOT EATEN FOR ABOUT TWO WEEKS PRIOR TO HIS ADMISSION TO THE HOSPITAL. PHYLLIS STATED SHE FEARS SORES IN HIS MOUTH IS THE CAUSE OF HIM NOT EATING AND SHE WANTS THE MRI TO SEE IF THAT IS THE CAUSE TO SEE IF IT CAN BE TREATED BEFORE HE IS DISCHARGED. SHE ALSO WANTS A SWALLOW EVALUATION DONE PRIOR TO DISCHARGE. PHYLLIS IS AGREEABLE TO PATRICIO DISCHARGING TO [place] WITH HOSPICE IF HE QUALIFIES. PHYLLIS INFORMED PT LIKELY QUALIFIED PRIOR TO HIM GETTING COVID DUE TO HIS DEMENTIA, SIGNIFICANT WEIGHT LOSS OVER THE LAST YEAR AND BEING BEDBOUND AND HAVING A CVA. PHYLLIS WAS RECEPTIVE TO THIS BUT REITERATED SHE WOULD STILL LIKE THE MRI AND SPEECH EVAL COMPLETED. RN CARING FOR PATRICIO AND CARE MANAGEMENT UPDATED WITH SPOUSE REQUESTS.
--- NOTE | 2024-07-22 16:51 | NUR ---
SHIFT SUMMARY: PATIENT IS ALERT AND ORIENTED TO SELF. PATIENT IS MAKING SOUNDS & SMILES WHEN ASKED QUESTIONS. AT BEGINNING OF SHIFT PATIENT WAS NOT ABLE TO FOLLOW COMMANDS BUT THE SHIFT PROGRESSED PATIENT WAS ABLE TO SQUEEZE AND LIFT HANDS WHEN MD CAME TO BEDSIDE. PATIENT ON TELE AND AT THE START OF SHIFT WAS AFIB AND CONVERTED TO SINUS AFTER BEING GIVEN A METOPROLOL PUSH FOR A SUSTAINING HEART RATE ABOVE 120. IS SATTING >92% ON ROOM AIR. VITAL SIGNS HAVE BEEN STABLE AND PATIENT HAS NOT SHOWN ANY SIGNS OF PAIN OR DISCOMFORT. PATIENT LABS WERE HIGH THORUGHOUT SHIFT AND MD AWARE AND AWAITING ORDERS OR DIRECTION OF A PLAN REGARDING THIS. MD ORDRED MRI AND IMAGING REQUESTED PREVIOUS IMAGE FROM [facility], AWAITING THOSE RESULTS CURRENTLY DO NOT HAVE A DIFINITIVE ANSWER REGARDING DOING THE IMAGING OR NOT. PALLIATIVE CARE IS CONSULTED AND CHATTED WITH AND [facility] POTASSIUM WAS REPLACED VIA IV. SPEECH THERAPY IS CONSULTED AND AWAITING AN EVALUATION. PATIENT HAS A SOLOMON AND IS DRAINING TO GRAVITY WITH GOOD OUTPUT. THIS RN WILL CONTINUE TO MONITOR UNTIL DIMENSION SPECIFICATION INSPECTOR RN ASSUMES CARE.
[2024-07-22 17:12] LABS: Prothrombin Time Results 67.9 Sec (9.7-11.5)
[2024-07-22 17:21] LABS: Prothrombin Time Results 65.9 Sec (9.7-11.5)
[2024-07-22 17:31] LABS: International Normalized Ratio 7.36
[2024-07-22 17:31] LABS: International Normalized Ratio 7.12
[2024-07-22] MEDS ORDERED: Phytonadione 5 MG Tab PO STA (17:36)
[2024-07-22] MEDS ORDERED: PHYTONADIONE 10 MG/ML SC ONE (18:00)
[2024-07-22] MEDS ORDERED: Phytonadione 5 MG in NS 50 ML IV ONE (18:05)
[2024-07-22] MEDS ORDERED: Dextrose 5% 1,000 ML IV SCH ×2 (18:30→21:20)
--- NOTE | 2024-07-22 18:32 | NUR ---
Dr. Varela called for downward trend of CBG today, NPO status awaiting speech/swallow evaluation. New orders received.
[2024-07-22 21:19] LABS: Prothrombin Time Results 43.4 Sec (9.7-11.5)
[2024-07-22 21:20] LABS: International Normalized Ratio 4.54
--- NOTE | 2024-07-22 22:05 | NUR ---
THIS RN ASSUMED CARE OF PT AT 1900. PT IS NON-VERBAL, ALERT AND ORIENTED TO SELF, WAS ABLE TO FOLLOW COMMANDS INTERMITTENTLY. PT HEART RATE IS IN NORMAL SINUS IN THE 90s, BLOOD PRESSURE STABLE AT 115/59, UNABLE TO ASSESS FOR CHEST PAIN DUE TO PT BEING NON-VERBAL. PT SOUNDS DIMINISHED THROUGHOUT, ON RA SATTING >95%, NO OBJECTIVE S/S OF SHORTNESS OF BREATH. PT HAS A SOLOMON DRAINING TO GRAVITY. BLANCHABLE PRESSURE INJURY ON COCCYX. NO OTHER INTERVENTIONS AT THIS TIME. PLAN OF CARE CONTINUED.
[2024-07-23] VITALS: BP 114/67
[2024-07-23 04:00] VITALS: BP 109/63; BP 130/87
[2024-07-23 04:14] LABS: Hematocrit 25.8 % (37.0-53.0); Hemoglobin 8.7 g/dL (13.5-17.5); Mean Corpuscular HGB 28.6 pg (26.0-34.0); Mean Corpuscular HGB Conc 33.7 g/dL (31.5-36.5); Mean Corpuscular Volume 85 fL (80-100); Mean Platelet Volume 11.9 fL (9.1-12.4); Platelet Count 75 K/mm3 (150-400); RDW Coefficient Variation 18.5 % (11.7-14.2); RDW Standard Deviation 56.6 fL (35.1-46.3); Red Blood Cell Count 3.04 M/mm3 (4.30-5.90); White Blood Cell Count 9.83 K/mm3 (4.00-11.30)
[2024-07-23 04:31] LABS: Albumin, Blood 1.6 g/dL (3.4-5.0); Albumin/Globulin Ratio 0.4 (0.8-1.8); Bilirubin, Total 1.9 mg/dL (0.1-1.0); Bun/Creatinine Ratio 17.6 (12.0-20.0); Calcium, Blood 7.8 mg/dL (8.5-10.1); Creatinine, Blood 1.31 mg/dL (0.60-1.20); Globulin, Blood 3.6 g/dL (2.2-4.0); Magnesium, Blood 1.8 mg/dL (1.6-2.4); Phosphorus, Blood 2.4 mg/dL (2.5-4.9); Potassium, Blood 3.3 mmol/L (3.5-5.5); Total Protein, Blood 5.2 g/dL (6.4-8.2)
[2024-07-23 04:42] LABS: International Normalized Ratio 2.63
[2024-07-23 04:53] LABS: Prothrombin Time Results 26.2 Sec (9.7-11.5)
--- NOTE | 2024-07-23 05:38 | NUR ---
PT SUMMARY PT LAYING IN BED PEACEFULLY. NO NEW ACUTE EVENTS TO REPORT OVERNIGHT. PLAN OF CARE CONTINUED.
[2024-07-23 07:04] VITALS: BP 124/57
--- NOTE | 2024-07-23 07:09 | NUR ---
ASSUMPTION NOTE: THIS RN TO TAKE OVER CARE OF PATIENT. PATIENT IS IN BED AND WATCHING TV. PATIENT IS NOT RESPONDING BUT IS TRACKING WITH EYES. VITAL SIGNS TAKEN AND PATIENT IS STABLE.
[2024-07-23] MEDS ORDERED: CefTRIAXone Sodium 1,000 MG in NS 100 ML IV SCH (09:00)
[2024-07-23] MEDS ORDERED: Potassium Phosphate Dibasic 30 MM in Dextrose 5% 500 ML IV STA (09:23)
--- NOTE | 2024-07-23 09:40 | NUR ---
md to bedside: md garcia to bedside to assess patient. md aware that paulyt has not been able to answer questions or following commands but is tracking some movements with eyes. md to talk with about goals of plan and notify about the swallow evaluation that was done this morning.
[2024-07-23 11:49] VITALS: BP 136/70
[2024-07-23] MEDS ORDERED: Morphine Sulfate 20 MG/1ML 1 ML Oral Syringe SL PRN (12:25)
[2024-07-23] MEDS ORDERED: Atropine Sulfate 1% Opth Soln 2ML BTL SL PRN (12:30)
[2024-07-23] MEDS ORDERED: LORazepam 0.5 MG Tab PO PRN (12:30)
--- NOTE | 2024-07-23 14:38 | NUR ---
Spiritual care visit conducted. Patient is alert but communication is challening at times. I talk with his spouse Lillie for quite some time as she shares about the family (her son and the patient's son) and about their strong Synagogue beliefs. Lillie is easily encouraged by conversation centered around her morgan and the Bible. I also provided prayer. The patient's face lit up when he saw me up close and very clearly said "yes" when I asked him if I could pray for him. When I prayed that God would lift the burden of how his family would manage and that God would protect and strengthen them, he said, "Yes" again. At the end he gave me a huge smile again. Both patient and Lillie displayed evidence of being encouraged and of having greater peace.
--- NOTE | 2024-07-23 15:26 | NUR ---
PALLIATIVE CARE NOTE: UPDATED COMFORT CARE ORDERS. NOTIFIED PRIMARY RN ORDERS WERE UPDATED. NO OTHER NEEDS IDENTIFIED AT THIS TIME. POLST ON FILE.
--- NOTE | 2024-07-23 17:43 | NUR ---
SHIFT SUMMARY: PATIENT IS NOW COMFORT CARE AND STATUS HAS BEEN CHANGED TO MEDICAL WITHOUT TELE. PATIENT IS ALERT BUT NOT ANSWERING ANY QUESTIONS OR FOLLOWING COMMANDS. DOES TRACK MOVEMENT AND SMILES WHEN BEING TALKED TO. PATIENT WAS AT BEDSIDE THROUGHOUT SHIFT. PLAN WILL BE TO DISCHARGE TOMORROW TO [facility]. IS TO GET A COVID 19 ANTIGEN TOMORROW MORNING 07.24.24 PRIOR TO DISCHARGE. SOLOMON IS STILL PLACED AND HAS A BRIEF FOR INCONTINENCE. WILL CONTINUE TO MONITOR UNTIL END OF SHIFT CHANGE AND LAST DIPPER RN TAKES OVER CARE.
--- NOTE | 2024-07-24 04:05 | NUR ---
ADMISSION NOTE PATIENT ARRIVED IN RM 2 AT 0238. PATIENT HAD HIGH FLOW NC ON AND NASAL TRUMPET. PATIENT ARRIVED WITH TELEMETRY. TELEMETRY CONFIRMED. PATIENT NONVERBAL, ALERT BUT ORIENTED TO NOTHING AND RESPONDS ONLY TO PAIN. RECIEVED REPORT FROM ANITRA AMIN, AND THIS RN TO ASSUME CARE.
--- NOTE | 2024-07-24 05:31 | NUR ---
SHIFT SUMMARY PT NONVERBAL OVERNIGHT. ORAL CARE DONE AND PT TURNED Q2. NO ACUTE EVENTS OVERNIGHT.
--- NOTE | 2024-07-24 08:34 | NUR ---
ASSUMPTION NOTE: THIS RN TO ASSUME CARE OF PATIENT. PATIENT IS AWAKE AND WAS TRACKING MOVEMENTS AND SMILED WHEN RN WAS TALKING TO HIM. VITAL SIGNS TAKEN AND PATIENT IS STABLE.
--- NOTE | 2024-07-24 09:55 | NUR ---
CALLED REQUESTING AN UPDATE AND THIS RN CHATTED WITH RN HEMODIALYSIS AND IS SET FOR PICKUP AT 12:15.
--- NOTE | 2024-07-24 11:49 | NUR ---
THIS RN CALLED [facility] AND GAVE REPORT OVER THE PHONE. TRANSPORTATION IS SET FOR 12:15.
--- NOTE | 2024-07-24 12:59 | NUR ---
DISCHARGE NOTE: PATIENT LEFT VIA AMBULANCE SERVICE TO BE TAKEN OVER TO [facility]. ALL BELONGINGS WERE TAKEN WITH PATIENT AND THE WAS NOTIFIED PRIOR TO LEAVING. THE TRANSPORTATION TEAM TOOK THE PAPERWORK FOR THEIR RECORDS.
== END 2024-07-24 12:52 | disposition hospice, home (50) | DRG 871 ==
LOC: ER 17:03 → ICUE 21:01 → PCU 21:01 → ICUE 07-18 05:51 → PCU 07-19 21:25
PROVIDERS: Emergency Medicine; Internal Medicine; Internal Medicine Critical Care Medicine; Nurse Practitioner Acute Care; ADMIT Student in an Organized Health Care Education/Training Program
PROC: 3E03329 Introduction of Other Anti-infective into Peripheral Vein, Percutaneous Approach (ICD-10-PCS; 2024-07-17)
PROC: 3E033XZ Introduction of Vasopressor into Peripheral Vein, Percutaneous Approach (ICD-10-PCS; principal; 2024-07-18)
PROC: 30233J1 Transfusion of Nonautologous Serum Albumin into Peripheral Vein, Percutaneous Approach (ICD-10-PCS; 2024-07-18)
DX: A41.51 Sepsis due to Escherichia coli [E. coli] (principal); R65.21 Severe sepsis with septic shock; N17.9 Acute kidney failure, unspecified; I48.20 Chronic atrial fibrillation, unspecified; N12 Tubulo-interstitial nephritis, not specified as acute or chronic; E87.20 Acidosis, unspecified; E87.0 Hyperosmolality and hypernatremia; F02.84 Dementia in other diseases classified elsewhere, unspecified severity, with anxiety; F01.54 Vascular dementia, unspecified severity, with anxiety; N39.0 Urinary tract infection, site not specified; A41.59 Other Gram-negative sepsis; Z66 Do not resuscitate; I10 Essential (primary) hypertension; E78.5 Hyperlipidemia, unspecified; K21.9 Gastro-esophageal reflux disease without esophagitis; N40.0 Benign prostatic hyperplasia without lower urinary tract symptoms; E87.6 Hypokalemia; E83.39 Other disorders of phosphorus metabolism; D69.6 Thrombocytopenia, unspecified; I67.9 Cerebrovascular disease, unspecified; K59.09 Other constipation; H61.20 Impacted cerumen, unspecified ear; E86.1 Hypovolemia; R09.02 Hypoxemia; R13.10 Dysphagia, unspecified; G20.A1 Parkinson's disease without dyskinesia, without mention of fluctuations; Z88.8 Allergy status to other drugs, medicaments and biological substances; Z91.018 Allergy to other foods; Z79.899 Other long term (current) drug therapy; Z79.891 Long term (current) use of opiate analgesic; Z79.2 Long term (current) use of antibiotics; Z79.01 Long term (current) use of anticoagulants; Z87.19 Personal history of other diseases of the digestive system; Z74.01 Bed confinement status; Z86.16 Personal history of COVID-19; Z86.73 Personal history of transient ischemic attack (TIA), and cerebral infarction without residual deficits; Z95.5 Presence of coronary angioplasty implant and graft; Z95.1 Presence of aortocoronary bypass graft
CPT/HCPCS: 0241U; 36415; 51701; 51703; 70450; 71045; 76770; 80053; 80069; 80076; 81001; 82803; 82947; 83605; 83735; 84100; 84145; 84295; 84484; 85025; 85027; 85049; 85610; 85730; 86022; 87040; 87077; 87086; 87186; 92610; 93005; 93010; 94760; 94762; 96365; 99285-25; A9270; C1751; J0282; J0360; J0696; J0883; J1644; J2470; J3010; J3430; J3480; J7030; J7042; J7050; J7060; J7070; J7120; J7799; P9047